=== PATIENT | female | born 1950 | race Caucasian/White ===

== ENCOUNTER → 2016-07-26 | Outpatient (CLI) | payer MEDICARE, OTHER ==
[~2016-07-26] MED LIST: /ADVA50050; /ATOR40TA; CALC500T49; COLA100C2; COMBVENT; ESTR0.5T; IBUP400T; NASAL SPRAY; VICO5TAB
--- NOTE | 2016-07-26 14:25 | REP ---
MR BRAIN WITHOUT AND WITH CONTRAST: HISTORY: Lung carcinoma. Contrast: ProHance 14.4 mL. Areas of increased signal intensity in T2-weighted images are present in the periventricular and subcortical white matter. This represents small vessel ischemic disease. There is no intraparenchymal hemorrhage, infarct, mass, or midline shift. There is no abdominal enhancement. The ventricular system and cortical sulci are dilated consistent with minimal volume loss. There is no extracerebral collection. The sinuses are clear. IMPRESSION: 1. Small vessel ischemic disease. 2. Minimal volume loss. Signed by Derik Can MD 07/26/2016 02:37 P
== END ==
LOC: M RAD 09:45
PROVIDERS: ATTEND Internal Medicine Medical Oncology
DX: C34.90 Malignant neoplasm of unspecified part of unspecified bronchus or lung (principal)
CPT/HCPCS: 70553; A9576

== ENCOUNTER → 2016-09-14 | Outpatient (CLI) | payer MEDICARE, OTHER ==
[2016-09-14 13:07] LABS: ALBUMIN 3.5 GM/DL (3.2-5.2); ALBUMIN/GLOBULIN RATIO 1.52 (1.00-1.93); ALKALINE PHOSPHATASE 109 U/L (45-117); ALT/SGPT 15 U/L (12-78); ANION GAP 5 MEQ/L (8-16); AST/SGOT 11 U/L (15-37); BILIRUBIN,TOTAL 0.3 MG/DL (0.2-1.0); BLOOD UREA NITROGEN 9 MG/DL (7-18); CALCIUM LEVEL 8.4 MG/DL (8.8-10.2); CARBON DIOXIDE LEVEL 30 MEQ/L (21-32); CHLORIDE LEVEL 107 MEQ/L (98-107); CHOLESTEROL LEVEL 132 MG/DL (<200); CREATININE FOR GFR 0.87 MG/DL (0.55-1.02); GLOMERULAR FILTRATION RATE > 60.0 (>45); GLUCOSE, FASTING 86 MG/DL (80-110); POTASSIUM SERUM 4.1 MEQ/L (3.5-5.1); SODIUM LEVEL 142 MEQ/L (136-145); TOTAL PROTEIN 5.8 GM/DL (6.4-8.2); TRIGLYCERIDES LEVEL 148 MG/DL (<150)
== END ==
LOC: M WUC 10:19
PROVIDERS: ATTEND Nurse Practitioner Family
DX: E78.2 Mixed hyperlipidemia (principal); E11.9 Type 2 diabetes mellitus without complications; E55.9 Vitamin D deficiency, unspecified

== ENCOUNTER → 2016-10-07 | Outpatient (CLI) | payer MEDICARE, OTHER | LOC: M ONCR 08:57 | PROVIDERS: ATTEND Radiology Radiation Oncology | DX: C34.11 Malignant neoplasm of upper lobe, right bronchus or lung (principal) ==

== ENCOUNTER → 2016-10-20 | Outpatient (CLI) | payer MEDICARE, OTHER ==
[~2016-10-20] MED LIST changes: +DEXA4TA PO
--- NOTE | 2016-10-20 14:18 | REP ---
PET/CT: History: Restaging small cell carcinoma. Status post chemotherapy. Comparisons: Comparison PET-CT study is from [facility] dated June 24, 2016. TECHNIQUE: 80 minutes following the intravenous injection of a 8.0 mCi dose of F-18 FDG, three-dimensional PET scintigraphy is acquired from the skull base to the proximal thighs. Triplanar noncontrast CT scanning is acquired through the same anatomic range for attenuation correction, and image registration with scan parameters optimized to minimize radiation exposure to the patient. PET scintigraphy and CT datasets were fused and displayed on a workstation with multiplanar and projection display capability. PET/CT Findings: Today's PET scintigraphy shows significant improvement. There is some residual hypermetabolic uptake in the spiculated mass in the right upper lobe. Maximum standard uptake value in this nodule today is 5.7. By previous PET/CT, previously 16.8. The previously noted right middle lobe nodule is virtually resolved on accompanying CT. No hypermetabolic uptake is seen here. No other abnormal pulmonary parenchymal hypermetabolic uptake is observed. There is some mildly hypermetabolic mindy uptake in the pretracheal lymph nodes with maximum standard uptake value of 3.6. Previously noted bulky subcarinal mediastinal and right hilar adenopathy is resolved. The previously noted hypermetabolic axillary adenopathy is resolved. No abnormal hypermetabolic lesion is seen in the abdomen or pelvis. Impression: Significantly improved PET/CT study. There is some residual hypermetabolic mindy uptake in the right pretracheal lymph node chain. There is hypermetabolic uptake in a right upper lobe mass which has improved in size and avidity since the prior study. This measures 2.0 cm in diameter, previously 3.2 cm. Maximum standard uptake value in the right upper lobe mass is 5.7, previously 16.8. Signed by Matt Johnson MD 10/20/2016 02:37 P
== END ==
LOC: M RAD 07:47
PROVIDERS: ATTEND Radiology Radiation Oncology
DX: C34.90 Malignant neoplasm of unspecified part of unspecified bronchus or lung (principal); Z92.21 Personal history of antineoplastic chemotherapy
CPT/HCPCS: 78815; A9552

== ENCOUNTER → 2016-10-21 | Outpatient (CLI) | payer MEDICARE, OTHER ==
[~2016-10-21] MED LIST changes: -DEXA4TA PO
--- NOTE | 2016-10-25 07:38 | RADONC ---
RADIATION ONCOLOGY FOLLOWUP NOTE DATE: 10/21/2016 CHART NUMBER: [id number] DIAGNOSIS: Small cell lung carcinoma, stage extensive. ECOG PERFORMANCE STATUS: 0. FOLLOWUP NOTE Ms. Amador is a very pleasant, 66-year-old white female with the diagnosis of extensive stage small cell lung carcinoma who is presenting to us today to discuss the findings of her recent PET CT. I have personally reviewed the findings with the patient and her family. We examined the actual images themselves. It showed a remarkable resolution of the vast majority of the patient's malignancy. There remains a much smaller less intense area in the right upper lobe on PET CT. The hypermetabolic activity in that area is now 5.7, it had been 16.8. All the other sites seem to be resolved. I made clear to the patient that this is actually an excellent result. I am not quite sure whether or not the small residual is active malignancy or will continue to shrink. In light of the excellent findings on PET scan, I have recommended that she consider prophylactic cranial irradiation. I discussed with the patient in detail the potential benefits as well as possible acute and chronic sequelae of external beam radiation therapy. We discussed the logistics of treatment planning, simulation and subsequent fractionated daily radiation treatments. I discussed with the patient in addition the recent NCCN guidelines with regards to prophylactic cranial irradiation. I contacted her medical oncologist to discuss this case as well. After consultation with Dr. Simmons, I do not think it unreasonable to offer consolidative radiation therapy to her only remaining residual nodule in the chest. I again discussed the NCCN guidelines with this patient. I think a limited field will be possible and we may be able to treat this area. I have initially scheduled initiation of prophylactic cranial irradiation for this patient. I will be obtaining subsequent studies, including pulmonary functions as well as a differential lung scan, and we will create a dose volume histogram prior to treatment of her residual hypermetabolic focus. Final decision and recommendations with regards to that will be made following obtaining the above mentioned studies. Once again, in summary, we are planning to deliver prophylactic cranial irradiation and will be working the patient up to see if she may benefit from consolidative thoracic radiation to the one remaining residual focus. Thank you for allowing us participate in the care of this very pleasant woman. If I could be of any further assistance or provide you with any information, please free to contact me anytime. As always warm regards. cc: MD Maria Guadalupe kSinner CORE EXTRUDER
== END ==
LOC: M ONCR 15:08
PROVIDERS: ATTEND Radiology Radiation Oncology
DX: C34.11 Malignant neoplasm of upper lobe, right bronchus or lung (principal)

== ENCOUNTER 2016-10-25 14:02 | Outpatient (RCR) | payer MEDICARE, OTHER ==
--- NOTE | 2016-10-25 15:27 | RADONC ---
RADIATION ONCOLOGY SIMULATION NOTE DATE: 10/25/2016 CHART NUMBER: Ms. Amador was taken to the CT scan for CT simulation of her whole brain field. CT was accomplished without difficulty or discomfort. Radiation treatment planning is underway and radiation treatments will begin subsequently. An immobilization device including a mask was created without difficulty or discomfort. It will be used throughout the course of treatment. I was physically present throughout the course of CT simulation.
[2016-11-08] MEDS ORDERED: DEXA4TA PO (16:39)
== END 2016-11-07 ==
LOC: M ONCR 14:02
PROVIDERS: ATTEND Radiology Radiation Oncology
DX: C34.11 Malignant neoplasm of upper lobe, right bronchus or lung (principal)

== ENCOUNTER → 2016-10-27 | Outpatient (CLI) | payer MEDICARE, OTHER ==
--- NOTE | 2016-10-27 13:40 | REP ---
PA and lateral chest: Comparison is 05/05/2016. There are two right upper lobe nodules. These appear to have decreased size slightly. The right paratracheal mass has decreased size. The right hilar mass has decreased size. Remainder of the right lung is clear. Left lung is clear and unchanged. Cardiac size is normal. Mediastinum and bony thorax are unremarkable. Impression: There has been decrease in size of the patient's known previous right lung nodules, right paratracheal mass and right hilar mass. Signed by Preet Haas MD 10/27/2016 01:30 P
--- NOTE | 2016-10-27 14:08 | REP ---
DIFFERENTIAL LUNG SCAN: SINGLE VIEW. HISTORY: Lung carcinoma. TECHNIQUE: 1.0 mCi of technetium 99m MAA is given intravenously for the perfusion exam and is followed by a 2.0 mCi dose of technetium 99m DTPA by aerosol for the ventilation study. Anterior and posterior planar images are acquired. These are divided into upper, middle, and lower thirds for "segmental" analysis. The differential segmental data is available on the PACS system for review. RESULTS: Overall lung function for the perfusion examination was 51.7% of counts from the left lung and 48.3% from the right. Differential lung function for the ventilation study was 50% of counts from the left lung and 50% from the right. Signed by Matt Johnson MD 10/27/2016 05:01 P
== END ==
LOC: M RAD 12:44
PROVIDERS: ATTEND Radiology Radiation Oncology
DX: C34.90 Malignant neoplasm of unspecified part of unspecified bronchus or lung (principal)
CPT/HCPCS: 71020; 78598; A9540; A9567

== ENCOUNTER 2016-11-08 11:48 | Outpatient (RCR) | payer MEDICARE, OTHER ==
[2016-11-08] MEDS ORDERED: DEXA4TA PO (16:39)
--- NOTE | 2016-11-09 10:28 | RADONC ---
RADIATION ONCOLOGY PROGRESS NOTE: DATE OF SERVICE: 11/08/2016 CHART NO: [id number] Ms. Amador is presently at a dose of 1000 cGy to her whole brain and is tolerating treatments quite well at this point. She is complaining of a headache and fatigue. She is not presently taking Decadron. The patient's review of systems is positive for some fatigue and headache but is otherwise noncontributory. She denies nausea, vomiting, fevers, chills, night sweats, diplopia, headaches, anxiety or depression, anorexia, weight loss, visual disturbances, chest pain, urinary or bowel difficulties, bone pain, or neurological problems. PHYSICAL EXAMINATION: The patient's skin is in good condition with no evidence of radiation change present. There is no moist or dry desquamation. The remainder of her physical exam remains unchanged. Ms. Amador is tolerating treatments quite well and radiation will continue as scheduled. I have given her a decadron prescription. MTDD
== END 2016-12-08 ==
LOC: M ONCR 11:48
PROVIDERS: ATTEND Radiology Radiation Oncology
DX: C34.11 Malignant neoplasm of upper lobe, right bronchus or lung (principal)

== ENCOUNTER 2016-11-10 15:12 | Outpatient (RCR) | payer MEDICARE, OTHER ==
--- NOTE | 2016-11-11 07:28 | RADONC ---
RADIATION ONCOLOGY SIMULATION NOTE DATE: 11/10/2016 CHART NUMBER: [id number]. SIMULATION NOTE: Ms. Amador was taken to the CT scan for CT simulation of her lung field. CT was accomplished without difficulty or discomfort. Radiation treatment planning is underway and radiation treatments will begin subsequently. An immobilization device was created without difficulty or discomfort. Will be used throughout the course of treatment. I was physically present throughout the course of CT simulation. We are planning on creating a dose volume histogram and will compare this with the patient's pulmonary functions and differential lung scan to see whether or not she can safely tolerate radiation. Further recommendations will be made.
--- NOTE | 2016-11-16 07:56 | RADONC ---
RADIATION ONCOLOGY PROGRESS NOTE DATE: 11/15/2016 CHART NUMBER: [id number] Ms. Amador is presently at a dose of 2250 cGy to her whole brain and is tolerating treatments quite well at this point with no complaints related to her radiation therapy. She is having no headaches or other problems. REVIEW OF SYSTEMS: The patient's review of systems is noncontributory. She denies nausea, vomiting, fevers, chills, night sweats, diplopia, headaches, anxiety or depression, anorexia, weight loss, visual disturbances, chest pain, urinary or bowel difficulties, bone pain, or neurological problems. PHYSICAL EXAMINATION: The patient's skin is in good condition with no evidence of radiation change present. The remainder of her physical exam remains unchanged. Ms. Amador is tolerating treatments quite well at this point and radiation will continue as scheduled. MTDD
--- NOTE | 2016-11-23 09:53 | RADONC ---
RADIATION ONCOLOGY PROGRESS NOTE DATE: 11/22/2016 CHART NUMBER: [id number] Ms. Amador underwent her first fraction of radiation today to her lung. It was tolerated without difficulty or discomfort. The patient's review of systems is noncontributory. She denies nausea, vomiting, fevers, chills, night sweats, diplopia, headaches, anxiety or depression, anorexia, weight loss, visual disturbances, chest pain, urinary or bowel difficulties, bone pain, or neurological problems. PHYSICAL EXAMINATION: The patient's skin clearly showed no evidence of radiation change present. The remainder of the physical exam remains unchanged. Ms. Amador tolerated her treatment first fraction well with no difficulties. Radiation will continue as scheduled.
--- NOTE | 2016-11-30 07:40 | RADONC ---
RADIATION ONCOLOGY PROGRESS NOTE DATE: 11/29/2016 Ms. Amador is presently at a dose of 1200 cGy to her right lung and is tolerating treatments quite well at this point with no significant difficulties related to her radiation therapy. She does say she has a little discomfort upon swallowing. She also has a periodic cough. She is having no fevers or chills. The patient's review of systems is positive for cough which mostly occurs at night and is episodic. She also has some slight discomfort upon swallowing, but her review of systems is otherwise noncontributory. Denies nausea, vomiting, fevers, chills, night sweats, diplopia, headaches, anxiety or depression, anorexia, weight loss, visual disturbances, chest pain, urinary or bowel difficulties, bone pain, or neurological problems. PHYSICAL EXAMINATION: The patient's skin is in good condition with no evidence of radiation change present. There is no moist or dry desquamation. The remainder of her physical exam remains unchanged. Ms. Amador is tolerating her treatments quite well and radiation will continue as scheduled.
--- NOTE | 2016-12-08 07:51 | RADONC ---
RADIATION ONCOLOGY PROGRESS NOTE DATE: 12/07/2016 CHART NUMBER: [id number] Ms. Amador is presently at a dose of 2200 cGy to her lung and is tolerating treatments quite well at this point with no complaints related to her radiation therapy. She is having no increased shortness of breath or difficulty swallowing. The patient's review of systems is noncontributory. She denies nausea, vomiting, fevers, chills, night sweats, diplopia, headaches, anxiety or depression, anorexia, weight loss, visual disturbances, chest pain, urinary or bowel difficulties, bone pain, or neurological problems. PHYSICAL EXAMINATION: The patient's skin is in good condition with no evidence of moist or dry desquamation. The remainder of her physical examination remains unchanged. Ms. Amador is tolerating treatments quite well and radiation will continue as scheduled.
== END 2016-12-08 ==
LOC: M ONCR 15:12
PROVIDERS: ATTEND Radiology Radiation Oncology
DX: C34.11 Malignant neoplasm of upper lobe, right bronchus or lung (principal)

== ENCOUNTER → 2016-11-10 | Outpatient (CLI) | payer MEDICARE, OTHER ==
[~2016-11-10] MED LIST changes: +DEXA4TA PO
== END ==
LOC: M RAD 14:56
PROVIDERS: ATTEND Radiology Radiation Oncology
DX: C34.11 Malignant neoplasm of upper lobe, right bronchus or lung (principal)

== ENCOUNTER 2016-12-09 11:53 | Outpatient (RCR) | payer MEDICARE, OTHER ==
--- NOTE | 2016-12-15 09:43 | RADONC ---
RADIATION ONCOLOGY PROGRESS NOTE DATE: 12/14/2016 CHART NUMBER: [id number] Ms. Amador is presently at a dose of 3200 cGy to her right lung and mediastinum and is tolerating treatments quite well at this point with no significant difficulties related to her radiation therapy other than some chest discomfort. REVIEW OF SYSTEMS: The patient's review of systems is positive for some discomfort in the treatment field but is otherwise noncontributory. She denies nausea, vomiting, fevers, chills, night sweats, diplopia, headaches, anxiety or depression, anorexia, weight loss, visual disturbances, chest pain, urinary or bowel difficulties, bone pain, or neurological problems. PHYSICAL EXAMINATION: The patient's skin is in good condition with no evidence of moist or dry desquamation. The remainder of her physical exam remains unchanged. Ms. Garza is tolerating treatments quite well and radiation will continue as scheduled.
--- NOTE | 2016-12-21 10:06 | RADONC ---
RADIATION ONCOLOGY PROGRESS NOTE DATE: 12/20/2016 CHART NUMBER: [id number] Ms. Amador is presently at a dose of 4000 centigrade to her mediastinum and is tolerating treatments quite well at this point with no significant difficulties related to her radiation therapy other than some mild esophagitis. REVIEW OF SYSTEMS: The patient's review of systems is positive for esophagitis but is otherwise largely noncontributory. Denies nausea, vomiting, fevers, chills, night sweats, diplopia, headaches, anxiety or depression, anorexia, weight loss, visual disturbances, chest pain, urinary or bowel difficulties, bone pain, or neurological problems. PHYSICAL EXAMINATION: The patient's skin is in good condition with no evidence of moist or dry desquamation. There is some radiation erythema present. The remainder of her physical exam remains unchanged. Ms. Amador is tolerating treatments quite well and radiation will continue as scheduled.
--- NOTE | 2016-12-28 07:55 | RADONC ---
RADIATION ONCOLOGY PROGRESS NOTE: DATE: 12/27/2016 CHART NUMBER: [id number]. PROGRESS NOTE: Ms. Garza is presently at a dose of 5000 cGy to her right lung and mediastinum and is tolerating treatments quite well at this point with no significant difficulties related to her radiation therapy. She is having no increased shortness of breath. She continues to not have much of an appetite. REVIEW OF SYSTEMS: The patient's review of systems is positive for anorexia, but is otherwise noncontributory. Denies nausea, vomiting, fevers, chills, night sweats, diplopia, headaches, anxiety or depression, anorexia, weight loss, visual disturbances, chest pain, urinary or bowel difficulties, bone pain, or neurological problems. PHYSICAL EXAMINATION: The patient's skin is in good condition with some tanning present. The remainder of her physical exam remains unchanged. Ms. Garza is tolerating treatments quite well and radiation will continue as scheduled.
--- NOTE | 2017-01-04 09:35 | RADONC ---
RADIATION ONCOLOGY PROGRESS NOTE DATE: 01/03/2017 CHART NUMBER: [id number] Ms. Amador is presently at a dose of 5800 centigrade to her small cell lung carcinoma in the mediastinum and is tolerating treatments quite well at this point with no significant difficulties related to her radiation therapy. She reports that she has been able to swallow. She does have some coughing. REVIEW OF SYSTEMS: The patient's review of systems is positive for cough but is largely otherwise noncontributory. Denies nausea, vomiting, fevers, chills, night sweats, diplopia, headaches, anxiety or depression, anorexia, weight loss, visual disturbances, chest pain, urinary or bowel difficulties, bone pain, or neurological problems. PHYSICAL EXAMINATION: The patient's skin is in good condition with no evidence of radiation change present. There is no moist or dry desquamation. The remainder of her physical exam remains unchanged. Ms. Amador is tolerating treatments quite well and radiation will continue as scheduled.
== END 2017-01-07 ==
LOC: M ONCR 11:53
PROVIDERS: ATTEND Radiology Radiation Oncology
DX: C34.11 Malignant neoplasm of upper lobe, right bronchus or lung (principal)

== ENCOUNTER 2017-01-12 10:09 | Outpatient (RCR) | payer MEDICARE, OTHER ==
--- NOTE | 2017-01-14 09:32 | RADONC ---
RADIATION ONCOLOGY PROGRESS NOTE: DATE: 01/12/2017 CHART NUMBER: [id number] Ms. Garza is presently at a dose of 6800 cGy to her lung and is tolerating treatments quite well at this point with no complaints related to her radiation therapy. She is having no significant increased breathing difficulties or swallowing problems. REVIEW OF SYSTEMS: The patient's review of systems is noncontributory. She denies nausea, vomiting, fevers, chills, night sweats, diplopia, headaches, anxiety or depression, anorexia, weight loss, visual disturbances, chest pain, urinary or bowel difficulties, bone pain, or neurological problems. PHYSICAL EXAMINATION: The patient's skin in good condition with no evidence of moist or dry desquamation. The remainder of her physical exam remains unchanged. Ms. Garza is tolerating treatments quite well and radiation will continue as scheduled.
--- NOTE | 2017-01-14 09:36 | RADONC ---
RADIATION ONCOLOGY TREATMENT SUMMARY: DATE: 01/13/2017 CHART NUMBER: [id number] DIAGNOSIS: Small cell lung cancer. STAGE: Extensive. ECOG PERFORMANCE STATUS: 0 Ms. Garza is a very pleasant 66-year-old white female with the diagnosis of extensive stage small cell lung carcinoma who presented to us for consideration of prophylactic cranial irradiation as well as thoracic consolidative radiation. We treated the patient to the whole brain for a total dose of 2500 cGy delivered in 10 fractions of 250 cGy each over 14 elapsed days from 11/02/2014 through 11/16/2014. The patient's whole brain was treated on a linear accelerator utilizing a 6 MV photon beam via parallel opposed lateral madsen. Following completion of whole brain radiation therapy, we treated the patient's primary site for a dose of 7000 cGy delivered in 35 fractions of 200 cGy each over 52 elapsed days from 11/22/2016 through 12/15/2016. The patient's primary site was treated on a linear accelerator utilizing a 18 MV photon beam via 3D conformal technique with anterior oblique and right posterior oblique madsen. Ms. Garza tolerated her treatments quite well and was able to complete therapy as prescribed without interruption. The patient is scheduled see me again in routine followup in 1 month. She is also scheduled to be followed by her other physicians in the meantime. cc: MD Maria Guadalupe Skinner NP
== END 2017-02-07 ==
LOC: M ONCR 10:09
PROVIDERS: ATTEND Radiology Radiation Oncology
DX: C34.11 Malignant neoplasm of upper lobe, right bronchus or lung (principal)

== ENCOUNTER → 2017-02-16 | Outpatient (CLI) | payer MEDICARE, OTHER ==
--- NOTE | 2017-02-17 09:39 | RADONC ---
RADIATION ONCOLOGY FOLLOWUP NOTE: DATE: 02/16/2017 CHART NUMBER: [id number] DIAGNOSIS: Small cell lung cancer. STAGE: Extensive. ECOG PERFORMANCE STATUS: 0 Ms. Amador is a very pleasant 66-year-old white female with the diagnosis of extensive stage small cell lung carcinoma who is presenting to us today for routine followup visit 3 months post completion of prophylactic cranial irradiation and 2 months post completion of thoracic consolidative radiation. The patient presents today reporting that she is doing quite well with no complaints at this time related to her radiation therapy or disease. She has no bone pain or other complaints. She has no increased shortness of breath. REVIEW OF SYSTEMS: The patient's review of systems is positive for some fatigue but is otherwise noncontributory. She denies nausea, vomiting, fevers, chills, night sweats, diplopia, headaches, anxiety or depression, anorexia, weight loss, visual disturbances, chest pain, urinary or bowel difficulties, bone pain, or neurological problems. PHYSICAL EXAMINATION: The patient is a well-developed, well-nourished female in no acute distress. HEENT exam is normocephalic, atraumatic. Extraocular movements are intact. There is no palpable cervical, supraclavicular, infraclavicular, axillary, or inguinal lymphadenopathy present. Lungs are clear to auscultation and percussion. Heart has a regular rate and rhythm. Abdomen is benign with no hepatosplenomegaly, masses, or tenderness. Skeletal examination reveals no tenderness to pressure or percussion of the bony skeleton. Extremities reveal no clubbing, cyanosis, or edema. Neurologic exam is grossly intact, as is the remainder of the physical examination. ASSESSMENT: The patient is clinically stable at this time and will be seen by us again in 3 months for further followup. She will also continue to be followed by her other physicians as well. I have ordered a new CT scan of the chest to be undertaken to evaluate her present level of disease and I have also ordered her bilateral screening mammography. cc: MD Maria Guadalupe Skinner NP
== END ==
LOC: M ONCR 15:30
PROVIDERS: ATTEND Radiology Radiation Oncology
DX: C34.11 Malignant neoplasm of upper lobe, right bronchus or lung (principal); C79.31 Secondary malignant neoplasm of brain

== ENCOUNTER → 2017-02-16 | Outpatient (CLI) | payer MEDICARE, OTHER ==
[2017-02-16 17:06] LABS: BLOOD UREA NITROGEN 11 MG/DL (7-18)
[2017-02-16 17:07] LABS: GLOMERULAR FILTRATION RATE > 60.0 (>45)
== END ==
LOC: M LAB 16:12
PROVIDERS: ATTEND Radiology Radiation Oncology
DX: C34.11 Malignant neoplasm of upper lobe, right bronchus or lung (principal)

== ENCOUNTER → 2017-02-25 | Outpatient (CLI) | payer MEDICARE, OTHER ==
[~2017-02-25] MED LIST changes: +ISOVUE-370 76% 100ML VIAL (Q9967) As Ordered ONE
--- NOTE | 2017-02-25 13:06 | REPMRS ---
Patient History The patient states she has not had a clinical breast exam in over a year. Patient has history of cancer in the right breast at age 65. Malignant radio exam breast specimen, July 21, 2015. Malignant localization of breast nodule of the right breast, July 21, 2015. Malignant radio exam breast specimen of the right breast, June 20, 2015. Malignant stereotatic loc for ea lesion of the right breast, June 20, 2015. Benign excisional biopsy of the left breast, 1972. Benign excisional biopsy of the left breast, 1969. Digital Mammo Screening Bilat: February 25, 2017 - Exam #: [id number] Bilateral CC and MLO view(s) were taken. Technologist: Margo Greco, Technologist Prior study comparison: March 03, 2016, right breast digital mammo diagnostic unilateral performed at [facility]. May 20, 2015, right breast digital mammo diagnostic unilateral performed at [facility]. May 14, 2015, digital woman screen mammo, performed at [facility]. June 13, 2013, digital woman screen mammo, performed at [facility]. FINDINGS: There are scattered fibroglandular densities. There has been no change in the appearance of the mammogram from the prior studies. There is a mild amount of scattered fibroglandular density which is fairly symmetric. There is no interval development of dominant mass, architectural distortion, or clustered microcalcification suggestive of malignancy. ASSESSMENT: BI-RADS/ACR category 1 mammogram. Negative. Recommendation Routine screening mammogram in 1 year (for women over age 40). This mammogram was interpreted with the aid of an FDA-approved computer-aided dectection system. Electronically Signed By: Mitch Johnson MD 02/25/17 [id number]
--- NOTE | 2017-02-25 13:15 | REP ---
CT of the chest with IV contrast: Comparisons 05/17/2016. There are multiple lung nodules as follows: Page 26, 9 mm, unchanged. Page 26, 9 mm, unchanged. Page 36, 2.1 cm (previously 3.1 cm). Page 66, 13 mm, unchanged. Previously there was a right middle lobe 9 mm nodule. This is no longer present. The right hilar adenopathy has decreased in size. The mediastinal adenopathy has significantly decreased in size. The previous noted at the thoracic inlet is no longer present. There is no left hilar adenopathy. This is unchanged. There is no axillary adenopathy, this is unchanged. There are no acute infiltrates or effusions. The thoracic aorta is unremarkable. Cardiac size is normal. There is no pericardial effusion. The visualized upper abdominal contents are unremarkable and unchanged. Impression: 1 ml lung nodule has decreased in size. All of the other lung nodules are similar in size. There is what lung nodule that is no longer present. The right hilar and mediastinal adenopathy has significantly decreased. Signed by Preet Haas MD 02/25/2017 01:07 P
== END ==
LOC: M RAD 10:43
PROVIDERS: ATTEND Radiology Radiation Oncology
DX: Z12.31 Encounter for screening mammogram for malignant neoplasm of breast (principal); Z85.118 Personal history of other malignant neoplasm of bronchus and lung; Z85.3 Personal history of malignant neoplasm of breast
CPT/HCPCS: 71260; G0202; Q9967

== ENCOUNTER → 2017-03-16 | Outpatient (REF) | payer MEDICARE, OTHER ==
[~2017-03-16] MED LIST changes: -ISOVUE-370 76% 100ML VIAL (Q9967) As Ordered ONE
== END ==
LOC: M LAB REF 11:29
PROVIDERS: ATTEND Internal Medicine Medical Oncology
DX: C34.90 Malignant neoplasm of unspecified part of unspecified bronchus or lung (principal)

== ENCOUNTER → 2017-04-06 | Outpatient (CLI) | payer MEDICARE, OTHER ==
[2017-04-06 13:45] LABS: ALBUMIN 3.5 GM/DL (3.2-5.2); ALBUMIN/GLOBULIN RATIO 1.21 (1.00-1.93); ALKALINE PHOSPHATASE 78 U/L (45-117); ALT/SGPT 12 U/L (12-78); ANION GAP 4 MEQ/L (8-16); AST/SGOT 12 U/L (15-37); BILIRUBIN,TOTAL 0.5 MG/DL (0.2-1.0); BLOOD UREA NITROGEN 10 MG/DL (7-18); CARBON DIOXIDE LEVEL 33 MEQ/L (21-32); CHLORIDE LEVEL 104 MEQ/L (98-107); CHOLESTEROL LEVEL 148 MG/DL (<200); CREATININE FOR GFR 0.77 MG/DL (0.55-1.02); GLOMERULAR FILTRATION RATE > 60.0 (>45); GLUCOSE, FASTING 96 MG/DL (80-110); POTASSIUM SERUM 4.4 MEQ/L (3.5-5.1); SODIUM LEVEL 141 MEQ/L (136-145); TOTAL PROTEIN 6.4 GM/DL (6.4-8.2); TRIGLYCERIDES LEVEL 160 MG/DL (<150)
== END ==
LOC: M WUC 10:09
PROVIDERS: ATTEND Nurse Practitioner Family
DX: E11.9 Type 2 diabetes mellitus without complications (principal); E78.2 Mixed hyperlipidemia

== ENCOUNTER → 2017-04-13 | Outpatient (CLI) | payer MEDICARE, OTHER ==
[~2017-04-13] MED LIST changes: +PROHANCE 279.3MG/ML 15ML VIAL (A9576) As Ordered ONE
--- NOTE | 2017-04-13 11:12 | REP ---
MRI BRAIN WITHOUT AND WITH CONTRAST: HISTORY: Headache. CONTRAST: ProHance 12.6 mL. COMPARISON: 07/26/2016. A 7 mm ring enhancing lesion is present in the posterior right temporal lobe. Areas of increased signal intensity on T2-weighted images are present in the periventricular and subcortical white matter and [place]. This represents small vessel ischemic disease. There is no intraparenchymal hemorrhage, infarct or midline shift. The ventricular system and cortical sulci are dilated consistent with minimal volume loss. There is no extracerebral collection. The sinuses are clear. IMPRESSION: 1. There is a 7 mm ring enhancing lesion in the posterior right temporal lobe consistent with a metastasis. 2. Small vessel ischemic disease. 3. Minimal volume loss. Signed by Derik Can MD 04/13/2017 11:32 A
== END ==
LOC: M RAD 09:30
PROVIDERS: ATTEND Nurse Practitioner Family
DX: R51 Headache (principal)
CPT/HCPCS: 70553; A9576

== ENCOUNTER → 2017-04-19 | Outpatient (CLI) | payer MEDICARE, OTHER ==
[~2017-04-19] MED LIST changes: -PROHANCE 279.3MG/ML 15ML VIAL (A9576) As Ordered ONE
--- NOTE | 2017-04-20 07:10 | RADONC ---
RADIATION ONCOLOGY CONSULTATION NOTE DATE: 04/19/2017 CHART NUMBER: [id number] DIAGNOSIS: Small cell lung carcinoma. STAGE: Extensive. ECOG PERFORMANCE STATUS: 1. CONSULTATION NOTE: Ms. Amador is a very pleasant 67-year-old white female with the diagnosis of extensive stage small cell lung carcinoma who is presenting to us today for consideration of palliative radiation therapy for a new 7 mm brain metastasis in the right temporal lobe. HISTORY OF PRESENT ILLNESS: The patient is well-known to us and has completed thoracic consolidative radiation therapy as well as prophylactic cranial irradiation. Her prophylactic cranial irradiation was completed on 11/16/2016. Since completion of prophylactic cranial irradiation, the patient has done generally well, but recently an MRI was done on 04/13/2017 which showed a new 7 mm ring enhancing lesion in the posterior right temporal lobe consistent with metastatic disease. The patient is now presenting for discussion regarding the possibility of palliative radiation therapy to that area. REVIEW OF SYSTEMS: The patient's review of systems is positive for some occasional migraine headaches behind her eyes, but is otherwise generally noncontributory. Denies nausea, vomiting, fevers, chills, night sweats, diplopia, headaches, anxiety or depression, anorexia, weight loss, visual disturbances, chest pain, urinary or bowel difficulties, bone pain, or neurological problems. PHYSICAL EXAMINATION: The patient is a well-developed, well-nourished, 67-year-old female in no acute distress. HEENT exam is normocephalic, atraumatic. Extraocular movements are intact. There is no palpable cervical, supraclavicular, infraclavicular, axillary, or inguinal lymphadenopathy present. Lungs are clear to auscultation and percussion. Heart has a regular rate and rhythm. Abdomen is benign with no hepatosplenomegaly, masses, or tenderness. Skeletal examination reveals no tenderness to pressure or percussion of the bony skeleton. Extremities reveal no clubbing, cyanosis, or edema. Neurologic exam is grossly intact, as is the remainder of the physical examination. ASSESSMENT: Clearly, the patient is a candidate for external beam radiation therapy and I have so informed her. I have discussed with the patient in detail the potential benefits as well as possible acute and chronic sequelae of external beam radiation therapy. We have discussed logistics of treatment planning, simulation and subsequent fractionated daily radiation treatments. Of significance, we discussed the risks of reirradiation of the brain. We discussed the possibility of brain damage including, but not limited to neurological and mental dysfunctions, memory loss and other issues. We also discussed the fact that if in the future further radiation is needed it would be impossible to deliver that safely. Basically, she will be maxed out for radiation at that point. I have scheduled the patient for simulation and radiation treatments will begin subsequently. Thank you for allowing us to participate in the care of this very pleasant woman. If I could be of any further assistance or provide you with any information, please free to contact me anytime. As always with warm regards. cc: Yareyl Reynolds MD, FACP [facility]
== END ==
LOC: M ONCR 09:58
PROVIDERS: ATTEND Radiology Radiation Oncology
DX: C34.11 Malignant neoplasm of upper lobe, right bronchus or lung (principal); C79.31 Secondary malignant neoplasm of brain

== ENCOUNTER → 2017-04-20 | Outpatient (CLI) | payer MEDICARE, OTHER | LOC: M RAD 13:57 | PROVIDERS: ATTEND Radiology Radiation Oncology | DX: C34.90 Malignant neoplasm of unspecified part of unspecified bronchus or lung (principal); C79.31 Secondary malignant neoplasm of brain ==

== ENCOUNTER 2017-05-11 14:46 | Outpatient (RCR) | payer MEDICARE, OTHER ==
--- NOTE | 2017-05-18 10:13 | RADONC ---
RADIATION ONCOLOGY PROGRESS NOTE DATE: 05/16/2017 CHART NUMBER: [id number]. PROGRESS NOTE: Ms. Amador is presently at a dose of 2000 cGy to her whole brain and is tolerating treatments quite well at this point with no complaints related to her radiation therapy. She is having no headaches or other problems. REVIEW OF SYSTEMS: The patient's review of systems is noncontributory. Denies nausea, vomiting, fevers, chills, night sweats, diplopia, headaches, anxiety or depression, anorexia, weight loss, visual disturbances, chest pain, urinary or bowel difficulties, bone pain, or neurological problems. PHYSICAL EXAMINATION: The patient's skin is in good condition with no evidence of radiation change present. There is no moist or dry desquamation. The remainder of her physical exam remains unchanged. Ms. Holt is tolerating treatments quite well and radiation will continue as scheduled.
--- NOTE | 2017-05-20 21:09 | RADONC ---
RADIATION ONCOLOGY TREATMENT SUMMARY DATE: 05/19/2017 CHART NUMBER: [id number] DIAGNOSIS Small cell lung cancer. STAGE: Extensive. ECOG PERFORMANCE STATUS: 1. TREATMENT SUMMARY: Ms. Amador is a very pleasant 67-year-old white female with the diagnosis of extensive stage small cell lung carcinoma who presented to us for consideration of palliative radiation therapy for a new brain metastasis. We treated the patient to her whole brain for a dose of 2000 cGy delivered in 10 fractions of 200 cGy each over 14 elapsed days from 05/02/2017 through 05/16/2017. The patient's whole brain was treated on a linear accelerator utilizing a 6 MV photon beam via parallel opposed lateral madsen. Following completion of 2000 cGy to the entire brain, we coned down to boost the small lesion for an additional 400 cGy delivered in two fractions of 200 cGy each from 05/17/2017 through 05/18/2017. This brought the patient's brain tumor to a total dose of 2400 cGy delivered in 12 fractions over 16 elapsed days from 05/02/2017 through 05/18/2017. Ms. Amador tolerated her treatments quite well and was able to complete therapy as prescribed without interruption. I initially considered delivering a somewhat higher dose to this area but considering her previous whole brain radiation and location of the lesion, I thought it safer to complete her at this time. The patient is scheduled see me again in 1 month for further followup. She will also continue to be followed by her other physicians as well. Thank you for allowing us to participate in the care of this very pleasant woman. If I could be of any further assistance or provide you with any information, please feel free to contact me anytime. As always, warm regards. cc: Yarely Reynolds MD, FACP Maria Guadalupe Pagan NP
== END 2017-06-09 ==
LOC: M ONCR 14:46
PROVIDERS: ATTEND Radiology Radiation Oncology
DX: C34.11 Malignant neoplasm of upper lobe, right bronchus or lung (principal); C79.31 Secondary malignant neoplasm of brain

== ENCOUNTER → 2017-06-22 | Outpatient (CLI) | payer MEDICARE, OTHER ==
--- NOTE | 2017-06-23 10:09 | RADONC ---
RADIATION ONCOLOGY FOLLOWUP NOTE DATE: 06/22/2017 CHART NUMBER: [id number] DIAGNOSIS: Small cell lung carcinoma. STAGE: Extensive. ECOG PERFORMANCE STATUS: 1 FOLLOW-UP NOTE: Ms. Amador is a very pleasant 67-year-old white female with the diagnosis of extensive stage small cell lung carcinoma who is presenting to us today for routine followup visit 1 month post completion of whole brain radiation therapy for brain metastasis. The patient presents today reporting that generally she is doing quite well. She has no complaints at this time related to her radiation therapy or disease. REVIEW OF SYSTEMS: The patient's review of systems is noncontributory. She denies nausea, vomiting, fevers, chills, night sweats, diplopia, headaches, anxiety or depression, anorexia, weight loss, visual disturbances, chest pain, urinary or bowel difficulties, bone pain, or neurological problems. PHYSICAL EXAMINATION: The patient is a well-developed, well-nourished female in no acute distress. HEENT exam is normocephalic, atraumatic. Extraocular movements are intact. There is no palpable cervical, supraclavicular, infraclavicular, axillary, or inguinal lymphadenopathy present. Lungs are clear to auscultation and percussion. Heart has a regular rate and rhythm. Abdomen is benign with no hepatosplenomegaly, masses, or tenderness. Skeletal examination reveals no tenderness to pressure or percussion of the bony skeleton. Extremities reveal no clubbing, cyanosis, or edema. Neurologic exam is grossly intact, as is the remainder of the physical examination. ASSESSMENT: The patient is clinically doing well at this time. She reports that she is scheduled for new scans to be done in July and that she will be seeing Dr. Simmons in August. I have therefore setup her followup for September of 2017. cc: MD Maria Guadalupe Skinner, [facility]
== END ==
LOC: M ONCR 11:38
PROVIDERS: ATTEND Radiology Radiation Oncology
DX: C34.11 Malignant neoplasm of upper lobe, right bronchus or lung (principal); C79.31 Secondary malignant neoplasm of brain

== ENCOUNTER 2017-07-29 11:37 | Emergency (ER) | payer MEDICARE, OTHER ==
[2017-07-29 13:00] LABS: BEDSIDE GLUCOSE 162 MG/DL (80-115)
[2017-07-29] MEDS ORDERED: KETOROLAC 30 MG/ML VIAL (J1885) IV (13:00)
[2017-07-29] MEDS: METOCLOPRAMIDE INJ 10MG/2ML VIAL (J2765) IV ×2 (14:23→16:15)
[2017-07-29] MEDS: NS 1,000 ML IV ×2 (14:23→16:15)
[2017-07-29] MEDS: MORPHINE 2 MG/ML 1ML SYRINGE IV (14:24)
[2017-07-29 14:50] LABS: BASO % 0.3 % (0.0-1.0); EOS # 0.1 10^3/uL (0.0-0.50); EOS % 0.5 % (0.0-3.0); HEMATOCRIT 46.8 % (36.0-47.0); IMMATURE GRANULOCYTE % 0.3 % (0-0); LYMPH # 0.5 10^3/uL (1.5-4.5); MEAN CORPUSCULAR HEMOGLOBIN 29.6 pg (27.0-33.0); MEAN CORPUSCULAR HGB CONC 34.2 g/dl (32.0-36.5); MEAN CORPUSCULAR VOLUME 86.5 fl (80.0-96.0); MONO # 0.9 10^3/uL (0.0-0.8); MONO % 6.8 % (0.0-5.0); NEUTROPHILS # 11.3 10^3/uL (1.8-7.7); NEUTROPHILS % 88.1 % (36.0-66.0); PLATELET COUNT, AUTOMATED 236 10^3/uL (150-450); RED BLOOD COUNT 5.41 10^6/uL (4.00-5.40); RED CELL DISTRIBUTION WIDTH 12.9 % (11.5-14.5); WHITE BLOOD COUNT 12.8 10^3/uL (4.0-10.0)
[2017-07-29 15:15] LABS: ALBUMIN 3.8 GM/DL (3.2-5.2); ALBUMIN/GLOBULIN RATIO 1.19 (1.00-1.93); ALKALINE PHOSPHATASE 92 U/L (45-117); ALT/SGPT 12 U/L (12-78); ANION GAP 9 MEQ/L (8-16); AST/SGOT 13 U/L (7-37); BILIRUBIN,TOTAL 0.9 MG/DL (0.2-1.0); BLOOD UREA NITROGEN 17 MG/DL (7-18); CALCIUM LEVEL 9.6 MG/DL (8.8-10.2); CARBON DIOXIDE LEVEL 36 MEQ/L (21-32); CHLORIDE LEVEL 99 MEQ/L (98-107); CPK CREATINE PHOSPHOKINASE 23 U/L (26-192); CREATININE FOR GFR 0.81 MG/DL (0.55-1.02); GLOMERULAR FILTRATION RATE > 60.0 (>45); GLUCOSE, FASTING 135 MG/DL (80-110); LIPASE 87 U/L (73-393); SODIUM LEVEL 144 MEQ/L (136-145); TROPONIN I < 0.02 NG/ML (< 0.10)
[2017-07-29 15:16] LABS: MB/CK RELATIVE INDEX 4.34 (< OR =4)
[2017-07-29] MEDS: NAPROXEN 250 MG TAB PO (16:15)
[2017-07-29] MEDS: KCL 10MEQ IN 100ML SWI (KRUN) 10 MEQ in APPROPRIATE DILUENT 1 EA IV (17:46)
[2017-07-29] MEDS: POTASSIUM CHLORIDE 10 MEQ SR TABLET PO (18:34)
== END 2017-07-29 19:26 | disposition home or self-care (01) ==
LOC: M ED 11:37
DX: J18.9 Pneumonia, unspecified organism (principal); R11.0 Nausea; C34.90 Malignant neoplasm of unspecified part of unspecified bronchus or lung; C79.31 Secondary malignant neoplasm of brain; J45.909 Unspecified asthma, uncomplicated; M54.5 Low back pain; F17.200 Nicotine dependence, unspecified, uncomplicated; Z79.899 Other long term (current) drug therapy; Z88.4 Allergy status to anesthetic agent

== ENCOUNTER 2017-08-01 13:13 | Inpatient (IN) | payer MEDICARE, OTHER ==
[2017-08-01] MEDS: NS 1,000 ML IV ×2 (14:46→19:37)
[2017-08-01] MEDS: KETOROLAC 30 MG/ML VIAL (J1885) IV (14:55)
[2017-08-01 14:56] LABS: BASO % 0.3 % (0.0-1.0); EOS # 0.2 10^3/uL (0.0-0.50); EOS % 1.6 % (0.0-3.0); HEMATOCRIT 43.4 % (36.0-47.0); IMMATURE GRANULOCYTE % 0.3 % (0-0); LYMPH # 0.5 10^3/uL (1.5-4.5); LYMPH % 5.4 % (24.0-44.0); MEAN CORPUSCULAR HEMOGLOBIN 29.2 pg (27.0-33.0); MEAN CORPUSCULAR HGB CONC 34.6 g/dl (32.0-36.5); MEAN CORPUSCULAR VOLUME 84.6 fl (80.0-96.0); MONO # 0.8 10^3/uL (0.0-0.8); MONO % 8.3 % (0.0-5.0); NEUTROPHILS # 7.7 10^3/uL (1.8-7.7); NEUTROPHILS % 84.1 % (36.0-66.0); PLATELET COUNT, AUTOMATED 200 10^3/uL (150-450); RED BLOOD COUNT 5.13 10^6/uL (4.00-5.40); RED CELL DISTRIBUTION WIDTH 12.5 % (11.5-14.5); WHITE BLOOD COUNT 9.1 10^3/uL (4.0-10.0)
[2017-08-01 16:33] LABS: ALBUMIN 3.3 GM/DL (3.2-5.2); ALBUMIN/GLOBULIN RATIO 1.06 (1.00-1.93); ALKALINE PHOSPHATASE 84 U/L (45-117); ALT/SGPT 11 U/L (12-78); ANION GAP 5 MEQ/L (8-16); AST/SGOT 12 U/L (7-37); BILIRUBIN,DIRECT 0.2 MG/DL (0.0-0.2); BILIRUBIN,TOTAL 0.7 MG/DL (0.2-1.0); BLOOD UREA NITROGEN 11 MG/DL (7-18); CALCIUM LEVEL 9.5 MG/DL (8.8-10.2); CARBON DIOXIDE LEVEL 36 MEQ/L (21-32); CHLORIDE LEVEL 100 MEQ/L (98-107); CREATININE FOR GFR 0.75 MG/DL (0.55-1.02); GLOMERULAR FILTRATION RATE > 60.0 (>45); GLUCOSE, FASTING 112 MG/DL (70-100); SODIUM LEVEL 141 MEQ/L (136-145); TOTAL PROTEIN 6.4 GM/DL (6.4-8.2)
[2017-08-01 16:55] LABS: AMORPHOUS SEDIMENT SMALL (NEGATIVE); APPEARANCE, URINE HAZY (CLEAR); BACTERIA, URINE AUTO NEGATIVE (NEGATIVE); BILIRUBIN, URINE AUTO NEGATIVE (NEGATIVE); BLOOD, URINE BLOOD NEGATIVE (NEGATIVE); COLOR, URINE AMBER (YELLOW); GLUCOSE, URINE (UA) AUTO NEGATIVE (NEGATIVE); KETONE, URINE AUTO NEGATIVE (NEGATIVE); LEUKOCYTE ESTERASE, URINE AUTO TRACE (NEGATIVE); MUCUS, URINE SMALL (NEGATIVE); NITRITE, URINE AUTO NEGATIVE (NEGATIVE); PROTEIN, URINE AUTO NEGATIVE (NEGATIVE); RBC, URINE AUTO 6 /HPF (0-3); SQUAMOUS EPITHELIAL CELL UR AU 3 /HPF (0-6); WBC, URINE AUTO 8 /HPF (0-3)
[2017-08-01] MEDS: ONDANSETRON 4MG/2ML VIAL (J2405) IV (17:55)
[2017-08-01] MEDS ORDERED: COMBIVENT RESPIMAT 100-20MCG INHALER 4GM INH (18:30)
[2017-08-01] MEDS ORDERED: ACETAMINOPHEN TAB 650MG DOSE (2X325MG) PO (18:30)
[2017-08-01] MEDS: POTASSIUM CHLORIDE 10 MEQ SR TABLET PO (19:00)
[2017-08-01] MEDS ORDERED: ISOVUE-370 76% 100ML VIAL (Q9967) As Ordered (19:38)
[2017-08-01 20:37] LABS: MAGNESIUM LEVEL 1.8 MG/DL (1.8-2.4)
[2017-08-01 20:37] LABS: C REACTIVE PROTEIN QUANTITATIV < 0.30 MG/DL (0.00-0.30)
[2017-08-01] MEDS: CEFTRIAXONE SOD 1 GM in APPROPRIATE DILUENT 1 EA IV (21:25)
[2017-08-01] MEDS: ADVAIR HFA 115/21MCG INHALER INH (21:37)
[2017-08-01] MEDS: SERTRALINE HCL 50 MG TAB PO (21:51)
[2017-08-01] MEDS: SENOKOT S TAB PO (21:51)
[2017-08-01] MEDS: DRONABINOL 2.5 MG CAP (MARINOL) PO (22:00)
[2017-08-01] MEDS: AZITHROMYCIN INJ 500 MG, VIAL MATE ADAPTER 1 EACH in D5W 250 ML IV (22:10)
[2017-08-02 07:47] LABS: BASO % 0.4 % (0.0-1.0); EOS # 0.3 10^3/uL (0.0-0.50); EOS % 3.7 % (0.0-3.0); HEMATOCRIT 39.4 % (36.0-47.0); HEMOGLOBIN 13.6 g/dl (12.0-16.0); IMMATURE GRANULOCYTE % 0.4 % (0-0); LYMPH # 0.7 10^3/uL (1.5-4.5); LYMPH % 8.4 % (24.0-44.0); MEAN CORPUSCULAR HEMOGLOBIN 29.6 pg (27.0-33.0); MEAN CORPUSCULAR HGB CONC 34.5 g/dl (32.0-36.5); MEAN CORPUSCULAR VOLUME 85.7 fl (80.0-96.0); MONO # 0.8 10^3/uL (0.0-0.8); MONO % 9.8 % (0.0-5.0); NEUTROPHILS # 6.3 10^3/uL (1.8-7.7); NEUTROPHILS % 77.3 % (36.0-66.0); PLATELET COUNT, AUTOMATED 191 10^3/uL (150-450); RED CELL DISTRIBUTION WIDTH 12.7 % (11.5-14.5); WHITE BLOOD COUNT 8.2 10^3/uL (4.0-10.0)
[2017-08-02 08:13] LABS: ANION GAP 5 MEQ/L (8-16); BLOOD UREA NITROGEN 7 MG/DL (7-18); CALCIUM LEVEL 8.7 MG/DL (8.8-10.2); CARBON DIOXIDE LEVEL 32 MEQ/L (21-32); CHLORIDE LEVEL 106 MEQ/L (98-107); CREATININE FOR GFR 0.52 MG/DL (0.55-1.02); GLOMERULAR FILTRATION RATE > 60.0 (>45); GLUCOSE, FASTING 121 MG/DL (70-100); MAGNESIUM LEVEL 1.8 MG/DL (1.8-2.4); POTASSIUM SERUM 2.7 MEQ/L (3.5-5.1); SODIUM LEVEL 143 MEQ/L (136-145)
[2017-08-02] MEDS: ADVAIR HFA 115/21MCG INHALER INH ×2 (08:14→21:04)
[2017-08-02] MEDS: SENOKOT S TAB PO ×2 (09:41→20:07)
[2017-08-02] MEDS: ENOXAPARIN 40 MG/0.4 ML SYRINGE (J1650) SC (09:41)
[2017-08-02] MEDS: DRONABINOL 2.5 MG CAP (MARINOL) PO ×3 (09:42→20:06)
[2017-08-02] MEDS: KCL 20MEQ in NS 1000ML 1,000 ML IV (09:42)
[2017-08-02] MEDS: POTASSIUM CHLORIDE 10 MEQ SR TABLET PO (09:42)
[2017-08-02 13:26] LABS: ANION GAP 9 MEQ/L (8-16); BLOOD UREA NITROGEN 8 MG/DL (7-18); CALCIUM LEVEL 8.4 MG/DL (8.8-10.2); CARBON DIOXIDE LEVEL 31 MEQ/L (21-32); CHLORIDE LEVEL 105 MEQ/L (98-107); CREATININE FOR GFR 0.51 MG/DL (0.55-1.02); GLOMERULAR FILTRATION RATE > 60.0 (>45); GLUCOSE, FASTING 123 MG/DL (70-100); POTASSIUM SERUM 3.1 MEQ/L (3.5-5.1); SODIUM LEVEL 145 MEQ/L (136-145)
[2017-08-02] MEDS: DOXYCYCLINE HYCLATE 100 MG in D5W MINI-BAG PLUS 100 ML IV (15:04)
[2017-08-02] MEDS: methylPREDNISolone INJ 40 MG/1 ML VIAL (J2920) IV (15:04)
[2017-08-02] MEDS ORDERED: PROHANCE 279.3MG/ML 15ML VIAL (A9576) As Ordered (17:27)
[2017-08-02] MEDS: PERCOCET 5MG/325MG TAB PO (20:07)
[2017-08-02] MEDS: SERTRALINE HCL 50 MG TAB PO (20:07)
[2017-08-02] MEDS: CEFTRIAXONE SOD 2 GM in APPROPRIATE DILUENT 1 EA IV (21:18)
[2017-08-02] MEDS: ONDANSETRON 4 MG TAB (S0181) PO (23:40)
[2017-08-03] MEDS: KCL 20MEQ in NS 1000ML 1,000 ML IV ×2 (00:39→14:34)
[2017-08-03] MEDS: DOXYCYCLINE HYCLATE 100 MG in D5W MINI-BAG PLUS 100 ML IV ×2 (03:46→14:34)
[2017-08-03 07:02] LABS: BASO % 0.3 % (0.0-1.0); EOS # 0.2 10^3/uL (0.0-0.50); EOS % 2.3 % (0.0-3.0); HEMATOCRIT 35.7 % (36.0-47.0); HEMOGLOBIN 12.1 g/dl (12.0-16.0); IMMATURE GRANULOCYTE % 0.4 % (0-0); LYMPH # 0.7 10^3/uL (1.5-4.5); LYMPH % 9.2 % (24.0-44.0); MEAN CORPUSCULAR HEMOGLOBIN 29.2 pg (27.0-33.0); MEAN CORPUSCULAR HGB CONC 33.9 g/dl (32.0-36.5); MONO # 0.7 10^3/uL (0.0-0.8); MONO % 8.2 % (0.0-5.0); NEUTROPHILS # 6.3 10^3/uL (1.8-7.7); NEUTROPHILS % 79.6 % (36.0-66.0); PLATELET COUNT, AUTOMATED 173 10^3/uL (150-450); RED BLOOD COUNT 4.15 10^6/uL (4.00-5.40); RED CELL DISTRIBUTION WIDTH 12.6 % (11.5-14.5); WHITE BLOOD COUNT 7.9 10^3/uL (4.0-10.0)
[2017-08-03 07:21] LABS: ANION GAP 5 MEQ/L (8-16); BLOOD UREA NITROGEN 7 MG/DL (7-18); CALCIUM LEVEL 8.5 MG/DL (8.8-10.2); CARBON DIOXIDE LEVEL 31 MEQ/L (21-32); CHLORIDE LEVEL 109 MEQ/L (98-107); GLOMERULAR FILTRATION RATE > 60.0 (>45); GLUCOSE, FASTING 93 MG/DL (70-100); MAGNESIUM LEVEL 1.8 MG/DL (1.8-2.4); POTASSIUM SERUM 3.1 MEQ/L (3.5-5.1); SODIUM LEVEL 145 MEQ/L (136-145)
[2017-08-03] MEDS: ADVAIR HFA 115/21MCG INHALER INH ×2 (08:13→21:46)
[2017-08-03] MEDS: DRONABINOL 2.5 MG CAP (MARINOL) PO ×3 (09:25→20:44)
[2017-08-03] MEDS: SENOKOT S TAB PO ×2 (09:25→20:44)
[2017-08-03] MEDS: methylPREDNISolone INJ 40 MG/1 ML VIAL (J2920) IV (09:25)
[2017-08-03] MEDS: ENOXAPARIN 40 MG/0.4 ML SYRINGE (J1650) SC (09:26)
[2017-08-03] MEDS: POTASSIUM CHLORIDE 10% LIQ 20 MEQ/15 ML UDC PO (09:26)
[2017-08-03] MEDS: SERTRALINE HCL 50 MG TAB PO (20:44)
[2017-08-03] MEDS: CEFTRIAXONE SOD 2 GM in APPROPRIATE DILUENT 1 EA IV (20:44)
[2017-08-03] MEDS: POTASSIUM CHLORIDE 10 MEQ SR TABLET PO (20:44)
[2017-08-04] MEDS: DOXYCYCLINE HYCLATE 100 MG in D5W MINI-BAG PLUS 100 ML IV ×2 (04:04→14:46)
[2017-08-04] MEDS: KCL 20MEQ in NS 1000ML 1,000 ML IV ×2 (04:05→15:40)
[2017-08-04 06:18] LABS: BASO % 0.2 % (0.0-1.0); EOS # 0.2 10^3/uL (0.0-0.50); EOS % 2.4 % (0.0-3.0); HEMATOCRIT 37.2 % (36.0-47.0); HEMOGLOBIN 12.5 g/dl (12.0-16.0); IMMATURE GRANULOCYTE # 0.1 10^3/uL (0-0); IMMATURE GRANULOCYTE % 0.5 % (0-0); LYMPH # 0.9 10^3/uL (1.5-4.5); LYMPH % 8.8 % (24.0-44.0); MEAN CORPUSCULAR HEMOGLOBIN 29.1 pg (27.0-33.0); MEAN CORPUSCULAR HGB CONC 33.6 g/dl (32.0-36.5); MEAN CORPUSCULAR VOLUME 86.7 fl (80.0-96.0); MONO # 0.8 10^3/uL (0.0-0.8); MONO % 8.7 % (0.0-5.0); NEUTROPHILS # 7.7 10^3/uL (1.8-7.7); NEUTROPHILS % 79.4 % (36.0-66.0); PLATELET COUNT, AUTOMATED 157 10^3/uL (150-450); RED BLOOD COUNT 4.29 10^6/uL (4.00-5.40); RED CELL DISTRIBUTION WIDTH 12.8 % (11.5-14.5); WHITE BLOOD COUNT 9.7 10^3/uL (4.0-10.0)
[2017-08-04 06:45] LABS: ANION GAP 5 MEQ/L (8-16); BLOOD UREA NITROGEN 5 MG/DL (7-18); CALCIUM LEVEL 8.6 MG/DL (8.8-10.2); CARBON DIOXIDE LEVEL 31 MEQ/L (21-32); CHLORIDE LEVEL 109 MEQ/L (98-107); GLOMERULAR FILTRATION RATE > 60.0 (>45); GLUCOSE, FASTING 101 MG/DL (70-100); MAGNESIUM LEVEL 1.9 MG/DL (1.8-2.4); POTASSIUM SERUM 3.9 MEQ/L (3.5-5.1); SODIUM LEVEL 145 MEQ/L (136-145)
[2017-08-04] MEDS: POTASSIUM CHLORIDE 10 MEQ SR TABLET PO (09:00)
[2017-08-04] MEDS: METOCLOPRAMIDE 10 MG TAB PO (09:37)
[2017-08-04] MEDS: methylPREDNISolone INJ 40 MG/1 ML VIAL (J2920) IV (09:37)
[2017-08-04] MEDS: DRONABINOL 2.5 MG CAP (MARINOL) PO ×3 (09:37→20:34)
[2017-08-04] MEDS: ENOXAPARIN 40 MG/0.4 ML SYRINGE (J1650) SC (09:38)
[2017-08-04] MEDS: SENOKOT S TAB PO ×2 (09:38→20:34)
[2017-08-04] MEDS: ADVAIR HFA 115/21MCG INHALER INH ×2 (09:56→22:49)
[2017-08-04] MEDS: PERCOCET 5MG/325MG TAB PO ×2 (15:25→20:36)
[2017-08-04] MEDS: CEFTRIAXONE SOD 2 GM in APPROPRIATE DILUENT 1 EA IV (20:34)
[2017-08-04] MEDS: SERTRALINE HCL 50 MG TAB PO (20:34)
[2017-08-05] MEDS: DOXYCYCLINE HYCLATE 100 MG in D5W MINI-BAG PLUS 100 ML IV ×2 (03:50→15:01)
[2017-08-05] MEDS: DRONABINOL 2.5 MG CAP (MARINOL) PO ×3 (06:13→20:48)
[2017-08-05 06:40] LABS: BASO % 0.2 % (0.0-1.0); EOS # 0.2 10^3/uL (0.0-0.50); EOS % 2.1 % (0.0-3.0); HEMATOCRIT 41.4 % (36.0-47.0); IMMATURE GRANULOCYTE % 0.5 % (0-0); LYMPH # 0.9 10^3/uL (1.5-4.5); LYMPH % 10.1 % (24.0-44.0); MEAN CORPUSCULAR HEMOGLOBIN 29.7 pg (27.0-33.0); MEAN CORPUSCULAR HGB CONC 33.8 g/dl (32.0-36.5); MEAN CORPUSCULAR VOLUME 87.7 fl (80.0-96.0); MONO # 0.7 10^3/uL (0.0-0.8); NEUTROPHILS # 6.8 10^3/uL (1.8-7.7); NEUTROPHILS % 79.1 % (36.0-66.0); PLATELET COUNT, AUTOMATED 184 10^3/uL (150-450); RED BLOOD COUNT 4.72 10^6/uL (4.00-5.40); RED CELL DISTRIBUTION WIDTH 12.8 % (11.5-14.5); WHITE BLOOD COUNT 8.6 10^3/uL (4.0-10.0)
[2017-08-05 06:55] LABS: ANION GAP 5 MEQ/L (8-16); BLOOD UREA NITROGEN 7 MG/DL (7-18); CARBON DIOXIDE LEVEL 33 MEQ/L (21-32); CHLORIDE LEVEL 104 MEQ/L (98-107); CREATININE FOR GFR 0.62 MG/DL (0.55-1.02); GLOMERULAR FILTRATION RATE > 60.0 (>45); GLUCOSE, FASTING 110 MG/DL (70-100); MAGNESIUM LEVEL 1.9 MG/DL (1.8-2.4); POTASSIUM SERUM 3.3 MEQ/L (3.5-5.1); SODIUM LEVEL 142 MEQ/L (136-145)
[2017-08-05] MEDS: ADVAIR HFA 115/21MCG INHALER INH ×2 (08:23→21:40)
[2017-08-05] MEDS: SENOKOT S TAB PO ×2 (10:16→20:49)
[2017-08-05] MEDS: ENOXAPARIN 40 MG/0.4 ML SYRINGE (J1650) SC (10:17)
[2017-08-05] MEDS: methylPREDNISolone INJ 40 MG/1 ML VIAL (J2920) IV (10:17)
[2017-08-05] MEDS: METOCLOPRAMIDE 10 MG TAB PO (11:38)
[2017-08-05] MEDS: GASTROGRAFIN SOLUTION 30ML PO ×2 (15:01→15:13)
[2017-08-05] MEDS: POTASSIUM CHLORIDE 10 MEQ SR TABLET PO ×2 (15:01→20:49)
[2017-08-05] MEDS ORDERED: ISOVUE-370 76% 100ML VIAL (Q9967) As Ordered (16:58)
[2017-08-05] MEDS: CEFTRIAXONE SOD 2 GM in APPROPRIATE DILUENT 1 EA IV (20:48)
[2017-08-05] MEDS: SERTRALINE HCL 50 MG TAB PO (20:48)
[2017-08-06] MEDS: DOXYCYCLINE HYCLATE 100 MG in D5W MINI-BAG PLUS 100 ML IV (02:09)
[2017-08-06 06:01] LABS: BASO % 0.2 % (0.0-1.0); EOS # 0.2 10^3/uL (0.0-0.50); EOS % 1.9 % (0.0-3.0); HEMATOCRIT 41.1 % (36.0-47.0); HEMOGLOBIN 13.8 g/dl (12.0-16.0); IMMATURE GRANULOCYTE % 0.3 % (0-0); LYMPH # 0.8 10^3/uL (1.5-4.5); LYMPH % 8.4 % (24.0-44.0); MEAN CORPUSCULAR HEMOGLOBIN 28.9 pg (27.0-33.0); MEAN CORPUSCULAR HGB CONC 33.6 g/dl (32.0-36.5); MONO # 0.8 10^3/uL (0.0-0.8); MONO % 9.3 % (0.0-5.0); NEUTROPHILS # 7.1 10^3/uL (1.8-7.7); NEUTROPHILS % 79.9 % (36.0-66.0); PLATELET COUNT, AUTOMATED 180 10^3/uL (150-450); RED BLOOD COUNT 4.78 10^6/uL (4.00-5.40); WHITE BLOOD COUNT 8.9 10^3/uL (4.0-10.0)
[2017-08-06 06:15] LABS: ANION GAP 6 MEQ/L (8-16); BLOOD UREA NITROGEN 10 MG/DL (7-18); CALCIUM LEVEL 9.5 MG/DL (8.8-10.2); CARBON DIOXIDE LEVEL 33 MEQ/L (21-32); CHLORIDE LEVEL 103 MEQ/L (98-107); CREATININE FOR GFR 0.51 MG/DL (0.55-1.02); GLOMERULAR FILTRATION RATE > 60.0 (>45); GLUCOSE, FASTING 98 MG/DL (70-100); MAGNESIUM LEVEL 1.9 MG/DL (1.8-2.4); POTASSIUM SERUM 3.5 MEQ/L (3.5-5.1); SODIUM LEVEL 142 MEQ/L (136-145)
[2017-08-06] MEDS: DRONABINOL 2.5 MG CAP (MARINOL) PO ×3 (06:47→21:30)
[2017-08-06] MEDS: ADVAIR HFA 115/21MCG INHALER INH ×2 (08:27→20:50)
[2017-08-06] MEDS: POTASSIUM CHLORIDE 10 MEQ SR TABLET PO ×2 (08:55→21:30)
[2017-08-06] MEDS: ENOXAPARIN 40 MG/0.4 ML SYRINGE (J1650) SC (08:55)
[2017-08-06] MEDS: methylPREDNISolone INJ 40 MG/1 ML VIAL (J2920) IV (08:55)
[2017-08-06] MEDS: SENOKOT S TAB PO ×2 (08:55→21:30)
[2017-08-06] MEDS: PROCHLORPERAZINE 5 MG TAB (S0183) PO (09:13)
[2017-08-06] MEDS: DOXYCYCLINE HYCLATE 100 MG TAB PO ×2 (11:24→21:30)
[2017-08-06] MEDS: predniSONE 20 MG TAB PO ×2 (11:24→21:30)
[2017-08-06] MEDS: METOCLOPRAMIDE 10 MG TAB PO (11:28)
[2017-08-06] MEDS: BISACODYL 5 MG TAB PO (12:52)
[2017-08-06] MEDS: CEFUROXIME 500 MG TAB PO ×2 (14:23→21:30)
[2017-08-06] MEDS: ONDANSETRON 4 MG TAB (S0181) PO (16:30)
[2017-08-06] MEDS: SERTRALINE HCL 50 MG TAB PO (21:30)
[2017-08-07 05:39] LABS: BASO % 0.1 % (0.0-1.0); HEMATOCRIT 40.8 % (36.0-47.0); HEMOGLOBIN 13.7 g/dl (12.0-16.0); IMMATURE GRANULOCYTE % 0.5 % (0-0); LYMPH # 0.4 10^3/uL (1.5-4.5); LYMPH % 4.4 % (24.0-44.0); MEAN CORPUSCULAR HGB CONC 33.6 g/dl (32.0-36.5); MEAN CORPUSCULAR VOLUME 86.3 fl (80.0-96.0); MONO # 0.4 10^3/uL (0.0-0.8); MONO % 4.4 % (0.0-5.0); NEUTROPHILS # 7.7 10^3/uL (1.8-7.7); NEUTROPHILS % 90.6 % (36.0-66.0); PLATELET COUNT, AUTOMATED 188 10^3/uL (150-450); RED BLOOD COUNT 4.73 10^6/uL (4.00-5.40); RED CELL DISTRIBUTION WIDTH 13.1 % (11.5-14.5); WHITE BLOOD COUNT 8.6 10^3/uL (4.0-10.0)
[2017-08-07 05:53] LABS: ANION GAP 7 MEQ/L (8-16); BLOOD UREA NITROGEN 15 MG/DL (7-18); CALCIUM LEVEL 9.4 MG/DL (8.8-10.2); CARBON DIOXIDE LEVEL 30 MEQ/L (21-32); CHLORIDE LEVEL 105 MEQ/L (98-107); CREATININE FOR GFR 0.54 MG/DL (0.55-1.02); GLOMERULAR FILTRATION RATE > 60.0 (>45); GLUCOSE, FASTING 131 MG/DL (70-100); POTASSIUM SERUM 4.8 MEQ/L (3.5-5.1); SODIUM LEVEL 142 MEQ/L (136-145)
[2017-08-07] MEDS: DRONABINOL 2.5 MG CAP (MARINOL) PO ×3 (06:56→23:06)
[2017-08-07] MEDS: predniSONE 20 MG TAB PO ×3 (06:56→23:06)
[2017-08-07] MEDS: ADVAIR HFA 115/21MCG INHALER INH ×2 (07:47→21:52)
[2017-08-07] MEDS: POTASSIUM CHLORIDE 10 MEQ SR TABLET PO ×2 (08:34→23:06)
[2017-08-07] MEDS: DOXYCYCLINE HYCLATE 100 MG TAB PO ×2 (08:35→23:07)
[2017-08-07] MEDS: CEFUROXIME 500 MG TAB PO ×2 (08:35→23:05)
[2017-08-07] MEDS: SENOKOT S TAB PO ×2 (08:35→23:05)
[2017-08-07] MEDS: ENOXAPARIN 40 MG/0.4 ML SYRINGE (J1650) SC (16:13)
[2017-08-07] MEDS: SERTRALINE HCL 50 MG TAB PO (23:07)
[2017-08-07] MEDS: PERCOCET 5MG/325MG TAB PO (23:25)
[2017-08-07] MEDS: ONDANSETRON 4 MG TAB (S0181) PO (23:33)
[2017-08-08] MEDS: predniSONE 20 MG TAB PO ×3 (05:50→21:32)
[2017-08-08 06:07] LABS: BASO % 0.1 % (0.0-1.0); EOS % 0.1 % (0.0-3.0); HEMATOCRIT 39.9 % (36.0-47.0); HEMOGLOBIN 13.4 g/dl (12.0-16.0); IMMATURE GRANULOCYTE % 0.4 % (0-0); LYMPH # 0.3 10^3/uL (1.5-4.5); MEAN CORPUSCULAR HEMOGLOBIN 29.3 pg (27.0-33.0); MEAN CORPUSCULAR HGB CONC 33.6 g/dl (32.0-36.5); MEAN CORPUSCULAR VOLUME 87.1 fl (80.0-96.0); MONO # 0.4 10^3/uL (0.0-0.8); NEUTROPHILS # 9.1 10^3/uL (1.8-7.7); NEUTROPHILS % 92.4 % (36.0-66.0); PLATELET COUNT, AUTOMATED 176 10^3/uL (150-450); RED BLOOD COUNT 4.58 10^6/uL (4.00-5.40); RED CELL DISTRIBUTION WIDTH 13.2 % (11.5-14.5); WHITE BLOOD COUNT 9.9 10^3/uL (4.0-10.0)
[2017-08-08 06:33] LABS: ANION GAP 7 MEQ/L (8-16); BLOOD UREA NITROGEN 22 MG/DL (7-18); CALCIUM LEVEL 9.4 MG/DL (8.8-10.2); CARBON DIOXIDE LEVEL 29 MEQ/L (21-32); CHLORIDE LEVEL 102 MEQ/L (98-107); CREATININE FOR GFR 0.63 MG/DL (0.55-1.02); GLOMERULAR FILTRATION RATE > 60.0 (>45); GLUCOSE, FASTING 118 MG/DL (70-100); MAGNESIUM LEVEL 2.2 MG/DL (1.8-2.4); POTASSIUM SERUM 4.7 MEQ/L (3.5-5.1); SODIUM LEVEL 138 MEQ/L (136-145)
[2017-08-08] MEDS: DOXYCYCLINE HYCLATE 100 MG TAB PO ×2 (08:09→21:32)
[2017-08-08] MEDS: CEFUROXIME 500 MG TAB PO ×2 (08:10→21:00)
[2017-08-08] MEDS: SENOKOT S TAB PO ×2 (08:10→21:32)
[2017-08-08] MEDS: POTASSIUM CHLORIDE 10 MEQ SR TABLET PO ×2 (08:10→21:32)
[2017-08-08] MEDS: DRONABINOL 2.5 MG CAP (MARINOL) PO ×3 (08:10→21:33)
[2017-08-08] MEDS: ENOXAPARIN 40 MG/0.4 ML SYRINGE (J1650) SC (08:10)
[2017-08-08] MEDS: ADVAIR HFA 115/21MCG INHALER INH ×2 (08:46→20:36)
[2017-08-08] MEDS: SERTRALINE 100 MG TAB PO (21:32)
[2017-08-09] MEDS: predniSONE 20 MG TAB PO ×3 (06:25→21:58)
[2017-08-09] MEDS: ADVAIR HFA 115/21MCG INHALER INH ×2 (07:48→21:11)
[2017-08-09] MEDS: CEFUROXIME 500 MG TAB PO ×2 (09:50→21:58)
[2017-08-09] MEDS: DOXYCYCLINE HYCLATE 100 MG TAB PO ×2 (09:50→21:58)
[2017-08-09] MEDS: ENOXAPARIN 40 MG/0.4 ML SYRINGE (J1650) SC (09:50)
[2017-08-09] MEDS: POTASSIUM CHLORIDE 10 MEQ SR TABLET PO ×2 (09:51→21:58)
[2017-08-09] MEDS: SENOKOT S TAB PO ×2 (09:51→21:58)
[2017-08-09] MEDS: DRONABINOL 2.5 MG CAP (MARINOL) PO ×3 (09:51→21:57)
[2017-08-09] MEDS: ONDANSETRON 4 MG TAB (S0181) PO (21:58)
[2017-08-09] MEDS: SERTRALINE 100 MG TAB PO (21:59)
[2017-08-09] MEDS: PERCOCET 5MG/325MG TAB PO (22:00)
[2017-08-10] MEDS: predniSONE 20 MG TAB PO (06:05)
[2017-08-10] MEDS: DRONABINOL 2.5 MG CAP (MARINOL) PO (06:05)
[2017-08-10] MEDS: ADVAIR HFA 115/21MCG INHALER INH (08:05)
[2017-08-10] MEDS: SENOKOT S TAB PO (10:37)
[2017-08-10] MEDS: ENOXAPARIN 40 MG/0.4 ML SYRINGE (J1650) SC (10:37)
[2017-08-10] MEDS: CEFUROXIME 500 MG TAB PO (10:37)
[2017-08-10] MEDS: DOXYCYCLINE HYCLATE 100 MG TAB PO (10:37)
[2017-08-10] MEDS: POTASSIUM CHLORIDE 10 MEQ SR TABLET PO (11:08)
== END 2017-08-10 12:16 | disposition home or self-care (01) | DRG 194 ==
LOC: M MSPAV 08-04 15:00 → M ED 13:13 → M PCU 08-02 16:12 → M ED INP 19:22
DX: J18.9 Pneumonia, unspecified organism (principal); C34.91 Malignant neoplasm of unspecified part of right bronchus or lung; C79.31 Secondary malignant neoplasm of brain; J44.9 Chronic obstructive pulmonary disease, unspecified; R62.7 Adult failure to thrive; E87.6 Hypokalemia; Z79.899 Other long term (current) drug therapy; J45.909 Unspecified asthma, uncomplicated; E78.5 Hyperlipidemia, unspecified; K58.9 Irritable bowel syndrome, unspecified; J32.9 Chronic sinusitis, unspecified; F32.9 Major depressive disorder, single episode, unspecified; K59.00 Constipation, unspecified

== ENCOUNTER → 2017-09-14 | Outpatient (CLI) | payer MEDICARE, OTHER | LOC: M ONCR 14:48 | DX: C34.11 Malignant neoplasm of upper lobe, right bronchus or lung (principal); C79.31 Secondary malignant neoplasm of brain | CPT/HCPCS: G0463 ==

== ENCOUNTER → 2017-10-05 | Outpatient (REF) ==
[2017-10-05 07:01] LABS: BASO % 0.4 % (0.0-1.0); EOS # 0.3 10^3/uL (0.0-0.50); EOS % 3.2 % (0.0-3.0); HEMATOCRIT 35.9 % (36.0-47.0); IMMATURE GRANULOCYTE % 0.4 % (0-3.0); LYMPH # 0.6 10^3/uL (1.5-4.5); MEAN CORPUSCULAR HEMOGLOBIN 28.4 pg (27.0-33.0); MEAN CORPUSCULAR HGB CONC 33.4 g/dl (32.0-36.5); MEAN CORPUSCULAR VOLUME 84.9 fl (80.0-96.0); MONO # 0.7 10^3/uL (0.0-0.8); MONO % 8.5 % (0.0-5.0); NEUTROPHILS # 6.8 10^3/uL (1.8-7.7); NEUTROPHILS % 80.5 % (36.0-66.0); PLATELET COUNT, AUTOMATED 284 10^3/uL (150-450); RED BLOOD COUNT 4.23 10^6/uL (4.00-5.40); WHITE BLOOD COUNT 8.5 10^3/uL (4.0-10.0)
[2017-10-05 07:33] LABS: ALBUMIN/GLOBULIN RATIO 0.88 (1.00-1.93); ALKALINE PHOSPHATASE 89 U/L (45-117); ALT/SGPT 9 U/L (12-78); ANION GAP 8 MEQ/L (8-16); AST/SGOT 11 U/L (7-37); BILIRUBIN,TOTAL 0.4 MG/DL (0.2-1.0); BLOOD UREA NITROGEN 9 MG/DL (7-18); CALCIUM LEVEL 9.3 MG/DL (8.8-10.2); CARBON DIOXIDE LEVEL 33 MEQ/L (21-32); CHLORIDE LEVEL 103 MEQ/L (98-107); GLOMERULAR FILTRATION RATE > 60.0 (>45); GLUCOSE, FASTING 109 MG/DL (70-100); POTASSIUM SERUM 2.6 MEQ/L (3.5-5.1); SODIUM LEVEL 144 MEQ/L (136-145); TOTAL PROTEIN 6.4 GM/DL (6.4-8.2)
== END ==
LOC: SKLAB3 07:00
DX: Z85.118 Personal history of other malignant neoplasm of bronchus and lung (principal)

== ENCOUNTER → 2017-10-06 | Outpatient (REF) ==
[2017-10-06 09:59] LABS: ANION GAP 7 MEQ/L (8-16); BLOOD UREA NITROGEN 9 MG/DL (7-18); CALCIUM LEVEL 9.4 MG/DL (8.8-10.2); CARBON DIOXIDE LEVEL 32 MEQ/L (21-32); CHLORIDE LEVEL 106 MEQ/L (98-107); CREATININE FOR GFR 0.63 MG/DL (0.55-1.30); GLOMERULAR FILTRATION RATE > 60.0 (>45); GLUCOSE, FASTING 128 MG/DL (70-100); POTASSIUM SERUM 3.4 MEQ/L (3.5-5.1); SODIUM LEVEL 145 MEQ/L (136-145)
== END ==
LOC: SKLAB3 07:00
DX: E87.6 Hypokalemia (principal)

== ENCOUNTER → 2017-10-25 | Outpatient (CLI) | payer MEDICARE, OTHER ==
[2017-10-26 00:20] LABS: APPEARANCE, URINE HAZY (CLEAR); BACTERIA, URINE AUTO NEGATIVE (NEGATIVE); BILIRUBIN, URINE AUTO NEGATIVE (NEGATIVE); BLOOD, URINE BLOOD NEGATIVE (NEGATIVE); CALCIUM OXALATE CRYSTALS SMALL; COLOR, URINE AMBER (YELLOW); GLUCOSE, URINE (UA) AUTO NEGATIVE (NEGATIVE); KETONE, URINE AUTO NEGATIVE (NEGATIVE); LEUKOCYTE ESTERASE, URINE AUTO NEGATIVE (NEGATIVE); MUCUS, URINE SMALL (NEGATIVE); NITRITE, URINE AUTO NEGATIVE (NEGATIVE); PROTEIN, URINE AUTO NEGATIVE (NEGATIVE); RBC, URINE AUTO 2 /HPF (0-3); SPECIFIC GRAVITY URINE AUTO 1.016 (1.002-1.035); SQUAMOUS EPITHELIAL CELL UR AU 0 /HPF (0-6); UROBILINOGEN, URINE AUTO 0.2 mg/dL (0.0-2.0); WBC, URINE AUTO 2 /HPF (0-3)
== END ==
LOC: SKLAB3 22:26
DX: R41.0 Disorientation, unspecified (principal)
CPT/HCPCS: 81001

== ENCOUNTER → 2017-10-27 | Outpatient (REF) | payer MEDICARE, OTHER ==
[2017-10-27 09:27] LABS: ANION GAP 7 MEQ/L (8-16); BLOOD UREA NITROGEN 13 MG/DL (7-18); CARBON DIOXIDE LEVEL 34 MEQ/L (21-32); CHLORIDE LEVEL 101 MEQ/L (98-107); CREATININE FOR GFR 0.86 MG/DL (0.55-1.30); GLOMERULAR FILTRATION RATE > 60.0 (>45); GLUCOSE, FASTING 160 MG/DL (70-100); POTASSIUM SERUM 2.6 MEQ/L (3.5-5.1); SODIUM LEVEL 142 MEQ/L (136-145)
== END ==
LOC: SKLAB3 07:01
DX: E87.6 Hypokalemia (principal)
CPT/HCPCS: 80048